=== PATIENT | female | born 1970 | race Caucasian/White ===

== ENCOUNTER → 2019-09-25 10:43 | Outpatient (BNVA) | payer BC, SELFPAY | PROVIDERS: Family Provider Nurse Practitioner Family; PCP Nurse Practitioner Family; Visit Provider Nurse Practitioner Family | DX: H93.91 Unspecified disorder of right ear (principal); M19.021 Primary osteoarthritis, right elbow; H66.90 Otitis media, unspecified, unspecified ear | CPT/HCPCS: 85651; 86431 ==

== ENCOUNTER → 2019-11-13 10:18 | Outpatient (BNVA) | payer BC, SELFPAY | PROVIDERS: Family Provider Nurse Practitioner Family; PCP Registered Nurse; Visit Provider Nurse Practitioner Family | DX: R05 Cough (principal); J10.1 Influenza due to other identified influenza virus with other respiratory manifestations | CPT/HCPCS: 87081; 87804; 87880 ==

== ENCOUNTER → 2020-11-14 09:17 | Outpatient (BNVA) | payer BC, SELFPAY | PROVIDERS: Family Provider Nurse Practitioner Family; PCP Registered Nurse; Visit Provider Registered Nurse | DX: F41.9 Anxiety disorder, unspecified (principal); E04.1 Nontoxic single thyroid nodule; R13.10 Dysphagia, unspecified; R53.83 Other fatigue | CPT/HCPCS: 84439; 84443; 84481; 85025 ==

== ENCOUNTER 2020-11-15 06:57 | Outpatient (CLI) | payer BC, SELFPAY ==
--- NOTE | 2020-11-15 07:15 | US_ITS ---
WS: [id number] ULTRASOUND THYROID TECHNIQUE: Ultrasound of the thyroid. CLINICAL INFORMATION: E04.1 - Nontoxic single thyroid nodule COMPARISON: None. FINDINGS: Thyroid: Right and left thyroid lobes are normal in size and echotexture. Bilateral thyroid nodules. Largest nodule in the right thyroid measures 1.4 x 1.6 x 1.1 CM. Small nodule left thyroid measuring 0.8 x 0.4 x 0.6 cm. Small nodule in the isthmus measuring 0.4 x 0.4 x 0.6 CCM. Right thyroid lobe: 5.7 cm x 1.7 cm x 1.7 cm Left thyroid lobe: 5.7 cm x 1.3 cm x 1.4 cm. Isthmus: 0.2 mm. Cervical lymphadenopathy: None. US/US thyroid [id number] IMPRESSION: 1. Bilateral thyroid nodules largest in the right measuring 1.4 x 1.6 x 1.1 CM with mixed echogenicity and peripheral vascularity. This could be further eval uated with FNA 2. Smaller subcentimeter nodules in the left lobe and isthmus. Recommend 12 mo nth follow-up.
== END 2020-11-15 06:58 | disposition home or self-care (01) ==
LOC: RAD 06:59
PROVIDERS: PCP Registered Nurse; Visit Provider Registered Nurse
DX: E04.2 Nontoxic multinodular goiter (principal)
CPT/HCPCS: 76536

== ENCOUNTER 2020-11-27 07:04 | Outpatient (CLI) | payer BC, SELFPAY ==
--- NOTE | 2020-11-27 07:12 | US_ITS ---
WS: [id number] ULTRASOUND-GUIDED RIGHT THYROID NODULE FNA ULTRASOUND-GUIDED LEFT ISTHMUS THYROID NODULE FNA. HISTORY: NONTOXIC SINGLE THYROID NODULE Procedure, risks, and complications were explained to the patient. Consent has been obtained. The skin is cleansed with ChloraPrep and anesthetized with 1% buffered lidocaine. FNA performed with 25 gauge needles. Due to features of a LEFT isthmus nodule in the RIGHT thyroid nodule both of these will undergo FNA. research technologist is present to fix slides. Fine-needle aspirations are performed of both thyroid nodules. No complications. US/US biopsy thyroid [id number] IMPRESSION: Uncomplicated FNA of theRIGHT thyroid nodule. Final pathology results pending. This RIGHT thyroid nodule has features concerning for malignancy. The most conc erning area of this nodule is inferiorly where it is obscured by calcification. If FNA is negative for malignancy strongly recommend short-term follow-up or s urgical removal due to concerning features of malignancy. I did discuss this wi th the patient at the time of the biopsy. Uncomplicated biopsy LEFT isthmus nodule. Final pathology results are pending.
== END 2020-11-27 07:05 | disposition home or self-care (01) ==
LOC: RAD 07:07
PROVIDERS: PCP Registered Nurse; Visit Provider Registered Nurse
DX: E04.1 Nontoxic single thyroid nodule (principal)
CPT/HCPCS: 10005; 10006; 88173; 88305

== ENCOUNTER → 2021-09-12 15:20 | Outpatient (BNVA) | payer BC, SELFPAY | PROVIDERS: PCP Registered Nurse; Visit Provider Registered Nurse | DX: J32.9 Chronic sinusitis, unspecified (principal) | CPT/HCPCS: 87486; 87581; 87633 ==

== ENCOUNTER → 2022-10-21 10:52 | Outpatient (BNVA) | payer BC, SELFPAY | PROVIDERS: PCP Registered Nurse; Visit Provider Family Medicine | DX: I10 Essential (primary) hypertension (principal); E04.1 Nontoxic single thyroid nodule; Z76.89 Persons encountering health services in other specified circumstances | CPT/HCPCS: 80053; 80061; 85025 ==

== ENCOUNTER → 2022-10-30 12:23 | Outpatient (BNVA) | payer BC, SELFPAY | PROVIDERS: PCP Family Medicine; Visit Provider Family Medicine | DX: I10 Essential (primary) hypertension (principal) | CPT/HCPCS: 80048 ==

== ENCOUNTER → 2023-02-08 11:31 | Outpatient (BNVA) | payer BC, SELFPAY | PROVIDERS: PCP Family Medicine; Visit Provider Family Medicine | DX: I10 Essential (primary) hypertension (principal) | CPT/HCPCS: 80048; 83735 ==

== ENCOUNTER → 2023-05-21 10:51 | Outpatient (BNVA) | payer BC, SELFPAY | PROVIDERS: PCP Family Medicine; Visit Provider Registered Nurse | DX: Z20.822 Contact with and (suspected) exposure to COVID-19; J32.9 Chronic sinusitis, unspecified | CPT/HCPCS: 87400; 87426 ==

== ENCOUNTER → 2023-06-14 10:51 | Outpatient (BNVA) | payer BC, SELFPAY | PROVIDERS: PCP Family Medicine; Visit Provider Family Medicine | DX: G62.9 Polyneuropathy, unspecified (principal) | CPT/HCPCS: 80053; 82607; 82746; 84443; 85025 ==

== ENCOUNTER → 2023-07-07 09:57 | Outpatient (BNVA) | payer BC, SELFPAY | PROVIDERS: PCP Family Medicine; Visit Provider Podiatrist Foot & Ankle Surgery | DX: G57.62 Lesion of plantar nerve, left lower limb | CPT/HCPCS: 73630 ==

== ENCOUNTER → 2023-09-13 10:42 | Outpatient (BNVA) | payer BC, SELFPAY | PROVIDERS: PCP Family Medicine; Visit Provider Family Medicine | DX: I10 Essential (primary) hypertension (principal); G62.9 Polyneuropathy, unspecified; Z79.899 Other long term (current) drug therapy | CPT/HCPCS: 80048; 82607; 83520 ==

== ENCOUNTER → 2023-10-01 10:36 | Outpatient (BNVA) | payer BC, SELFPAY | PROVIDERS: PCP Family Medicine; Visit Provider Family Medicine | DX: E04.1 Nontoxic single thyroid nodule (principal) | CPT/HCPCS: 82306 ==

== ENCOUNTER 2023-10-29 05:54 | Day surgery (SDC) | payer BC, SELFPAY ==
[2023-10-29] VITALS (7 sets, daily range): BP systolic 108–134; BP diastolic 72–95; PULSE 67–73; RESP 14–18; TEMP 36.1–36.6; O2SAT 96–100; BMI 22.0
[2023-10-29] MEDS: CELEcoxib 200 mg Capsule 400 MG PO (06:34)
[2023-10-29] MEDS: gabapentin 300 mg Capsule PO (06:35)
[2023-10-29] MEDS: sodium chloride 0.9% 1,000 ML 30 ML IV (06:35)
[2023-10-29] MEDS: scopolamine 1.5 Patch 1 PATCH TRANSDERMA (06:39)
--- NOTE | 2023-10-29 06:39 | P.ANESASSM_ITS ---
Pre-Anesthetic Assessment Height/Weight: Height 1.73 m Weight 65.771 kg Temp Pulse Resp BP Pulse Ox O2 Del Method 97.9 F 70 16 115/75 96 Room Air 10/29/23 06:11 10/29/23 06:11 10/29/23 06:11 10/29/23 06:11 10/29/23 06:11 10/29/23 06:11 Preop Diagnosis: Greenberg's neuroma, left foot Operation Date: 10/29/23 07:00 Proposed Procedures p Open Decompression Intermetarsal Nerve Decompression Intermetarsal Neuroma, Left 2nd(Left) - Clarence Bourgeois DPM Familial anesthetic complications: None Was Beta Lucinda taken within 24 hours: N/A Was Clonidine taken within 24 hours: N/A Last intake: Intake Last Liquid Date 10/28/23 Last Liquid Time 21:00 Last Solid Date 10/28/23 Last Solid Time 18:00 Social No alcohol and No tobacco Exam alert, oriented x 3, clear to auscultation bilaterally and regular rate & rhythm Airway Mallampati: Class II Dentition: full CV/HEM Hypertension Metabolic Thyroid Disease (1/3rd thyroid removed, hormones balanced, not requiring supplement) Anesthetic Plan ASA status: 2 Anesthesia: MAC Risk of > 500 ml blood loss (7ml/kg in children): No Medications/Allergies Home Medications Medication Instructions Recorded Confirmed Last Taken Type medroxyprogesterone 2.5 mg tablet 2.5 mg PO DAILY 09/16/21 10/29/23 10/28/23 History estradiol 2 mg tablet 2 mg PO DAILY 07/07/23 10/29/23 10/28/23 History amitriptyline 10 mg tablet 10 mg PO QPM 10/29/23 10/29/23 10/28/23 History hydrochlorothiazide 50 mg tablet 50 mg PO DAILY 10/29/23 10/29/23 10/28/23 His tory lisinopril 10 mg tablet 10 mg PO DAILY 10/29/23 10/29/23 10/28/23 History Allergies Allergy/AdvReac Type Severity Reaction Status Date / Time No Known Allergies Allergy Verified 10/28/23 08:42 Current Medications Generic Name Dose Route Start Last Admin Trade Name Freq PRN Reason Stop Dose Admin Sodium Chloride 1,000 mls @ 30 mls/hr 10/29/23 06:00 10/29/23 06:35 Sodium Chloride 0.9% IV 10/30/23 05:59 30 mls/hr .Q24H HEMA Administration PFSH Anesthesia Medical History Nodular thyroid disease Anxiety Surgical History History of endometrial ablation History of tonsillectomy History of hip surgery bilateral labrum repair History of thyroidectomy, subtotal History of cholecystectomy Family History Father Cancer prostate Hypertension Mother Hypertension Social History Smoking and tobacco/nicotine status: never used tobacco/nicotine Alcohol intake: current Alcohol intake frequency: holidays/special occasions only Substance/Drug Use: never Lives independently: Yes Household members: spouse Marital status: Number of children: 2 Current occupational status: retired Sexually active: Yes Do you think of yourself as: Straight/Heterosexual Current gender identity: Female Agree to transfusion: Yes Data Anesthesia Cardiac Studies: No Data to Display
--- NOTE | 2023-10-29 06:44 | P.HPUD_ITS ---
Surgery/Procedure H&P Update DATE OF PROCEDURE: October 29, 2023 DATE H&P PERFORMED: 10/19/23 H&P UPDATE INFORMATION: I have reviewed H&P completed within last 30 days, I have examined patient prior to procedure, No changes to prior documentation and H&P is in [facility] EMR on date indicated CHANGES TO PREVIOUS DOCUMENTATION: none PREOP DIAGNOSIS: Greenberg's neuroma, left foot PLANNED PROCEDURE: Operation Date: 10/29/23 07:00 Proposed Procedures p Open Decompression Intermetarsal Nerve Decompression Intermetarsal Neuroma, Left 2nd(Left) - Clarence Bourgeois DPM
--- NOTE | 2023-10-29 06:50 | PM.OP ---
Operative Report Date of procedure: October 29, 2023 Pre-op diagnosis: Left second intermetatarsal Greenberg's neuroma Post-op diagnosis: Same Procedure done: Decompression left second intermetatarsal neuroma. CPT code 11489 Implants: 4-0 Vicryl, 4-0 nylon Specimens removed/disposition: none Pathology: None Surgeon: Clarence Bourgeois DPM Road Hogger Operator: RADHA Estimated blood loss: 2 22 IV fluids: 0 Urine output: 0 Complications: none Brief History: Mortons neuroma left second interspace failed conservative treatment consisting of activity modifications, stretching, oral anti-inflammatories, local cortisone injection x 3, orthotics and supportive shoes. At this point having failed conservative modalities patient is wishing to discuss surgical options. I am recommending decompression of left second metatarsal space can be done outpatient under sedation anesthesia. I reviewed at length with the patient, the risks, potential complications, benefits, alternatives, expectations, and typical outcomes associated with the surgery. The risks and potential complications were explained in detail, including but not limited to infection, wound dehiscence or soft tissue complications, bleeding and hematoma, chronic edema, neuritis or nerve damage producing numbness or chronic pain, CRPS, failure to relieve pain or worsening pain, thick / painful / unsightly scar, limited motion / stiffness, malposition, delayed union, malunion, or nonunion, fracture, reaction to implants, anesthetic complications, venous thromboembolism, and deformity recurrence. I discussed the notion of no regrets with the patient as it pertains to complications and outcomes. The patient seemed to understand the nature of the proposed care and required convalescence. They asked appropriate questions, answered to their satisfaction. They are aware no guarantees can be made as to a satisfactory outcome and they understand there may be other possible unforeseen complications or outcomes not listed here that will be treated accordingly if they arise. There were no written or implied guarantees given to the patient. They gave informed consent to proceed. Procedure: Under mild sedation the patient was brought to the operating room and remained on the gurney in supine position. A timeout was performed. Anesthesia was then administered by the anesthesia service. Local anesthesia was injected by myself consisting of 20 cc of one-to-one mixture 1% lidocaine and 0.5% Marcaine plain and a left second ray block fashion. Well-padded pneumatic tourniquet was applied to the left ankle. The left lower extremity was then scrubbed, prepped and draped utilizing normal aseptic technique. Left foot was exanguinated with an Esmarch bandage and the tourniquet inflated to 250 mmHg. A longitudinal incision was made over the dorsal aspect of the foot, between the second and third metatarsal heads, extending approximately 3 cm distally. The subcutaneous tissue and superficial fascia were dissected through using electrocautery, taking care to avoid injury to the digital nerves. Upon exposure of the second intermetatarsal space, the transverse metatarsal ligament was identified and incised to gain access to the underlying structures. Careful dissection was performed to identify the Greenberg neuroma, which appeared as a thickened, fibrotic nerve bundle between the third and fourth metatarsal heads. The neuroma was gently dissected free from the surrounding tissues, taking care to preserve the adjacent structures, including the digital nerves and arteries. Blunt dissection and meticulous hemostasis were utilized to ensure optimal visualization and minimize bleeding. Once the neuroma was completely freed, a decision was made to perform a decompression procedure to alleviate pressure on the nerve. The surrounding tissues, including the intermetatarsal ligament and deep transverse intermetatarsal ligament, were carefully released using blunt dissection and electrocautery. After ensuring satisfactory decompression, the wound was thoroughly irrigated with a sterile saline solution to remove any debris or blood. Hemostasis was confirmed, and the wound was closed in layers. The subcutaneous tissues were approximated using absorbable sutures, and the skin was closed with interrupted nylon sutures. Sterile dressings were applied over the incision site, and a sterile compression dressing was applied to the foot. The tourniquet was released, and the patient's foot was inspected for any signs of bleeding or hematoma formation. The foot was then dressed in a soft bulky bandage, and the patient was transferred to the recovery room in stable condition. There were no intraoperative complications, and the patient tolerated the procedure well. Postoperative instructions were provided to the patient, including elevation of the foot, application of ice packs, and limitation of weight-bearing activities for a specified period. The patient was scheduled for a follow-up appointment in the clinic in 1 week to assess the progress of the wound and evaluate for any signs of recurrent symptoms. Summary: The patient underwent a Greenberg neuroma decompression procedure, during which the neuroma was identified, dissected free, and a decompression procedure was performed. The patient tolerated the procedure well, and postoperative instructions were provided. The excised specimen confirmed the diagnosis of Greenberg neuroma. The patient will be followed up in the clinic to assess the progress of the wound and evaluate for any signs of recurrence.
[2023-10-29] MEDS: ceFAZolin 2,000 MG in sodium chloride 0.9% (plus) 50 ML 100 MG IV (07:00)
[2023-10-29] MEDS: lidocaine 2% INJ 20 mL 15 ML INJECTION (07:20)
[2023-10-29] MEDS: BUPivacaine 0.5% INJ 30 mL 15 ML INJECTION (07:20)
[2023-10-29] MEDS: HYDROcodone-acetaminophen 10-325 mg Tablet 1 TAB PO (08:33)
--- NOTE | 2023-10-29 08:45 | ANE.PACU2 ---
Inpatient post-anesthesia follow up: Airway intact: Yes Vital signs: Temperature 97.0 F Pulse Rate 68 Respiratory Rate 18 Blood Pressure 134/89 Pulse Oximetry 98 Oxygen Delivery Me thod Room Air Oxygen Flow Rate Fraction of Inspir ed Oxygen Hydration adequate: Yes Nausea and vomiting: No Pain level: 1 Mental status: Baseline
== END 2023-10-29 08:47 | disposition home or self-care (01) ==
PROVIDERS: PCP Family Medicine; Visit Provider Podiatrist Foot & Ankle Surgery
PROC: (CPT 64702; principal; 2023-10-29 07:00)
DX: G57.62 Lesion of plantar nerve, left lower limb (principal); I10 Essential (primary) hypertension
CPT/HCPCS: 64702; J0690; J2250; J2704; J3010; J3490; J7030

== ENCOUNTER → 2024-12-14 09:26 | Outpatient (BNVA) | payer BC, SELFPAY | PROVIDERS: PCP Family Medicine; Visit Provider Family Medicine | DX: Z00.00 Encounter for general adult medical examination without abnormal findings (principal) | CPT/HCPCS: 80053; 80061; 82306; 83036; 85025 ==